=== PATIENT | male | born 1955 | race Caucasian/White ===

== ENCOUNTER 2021-11-25 09:52 | Outpatient (CLI) | payer MEDICARE, OTHER | END 2021-11-25 09:53 | disposition home or self-care (01) | LOC: CSHCT 09:52 | PROVIDERS: ATTEND Student in an Organized Health Care Education/Training Program | DX: J01.91 Acute recurrent sinusitis, unspecified (principal); J32.8 Other chronic sinusitis ==

== ENCOUNTER 2023-06-01 13:16 | Outpatient (CLI) | payer MEDICARE, OTHER | END 2023-06-01 13:17 | disposition home or self-care (01) | LOC: CSHMRI 13:16 | PROVIDERS: ATTEND Internal Medicine | DX: M51.36 Other intervertebral disc degeneration, lumbar region (principal); M43.16 Spondylolisthesis, lumbar region | CPT/HCPCS: 72148 ==

== ENCOUNTER 2024-03-11 16:01 | Outpatient (CLI) | payer MEDICARE, OTHER ==
[2024-03-11 16:38] LABS: #Basophils 0.02 10x3/uL (0.0-0.2); #Eosinphils 0.19 10x3/uL (0.0-0.5); #Monocytes 0.72 10x3/uL (0.0-1.1); #Neutrophils 3.56 10x3/uL (1.5-8.4); %Basophils 0.3 % (0.0-2.0); %Eosinophils 2.9 % (0.0-6.0); %Lymphocytes 31.3 % (18.0-47.0); %Neutrophils 54.3 % (40.0-75.0); Hematocrit 36.9 % (38.8-50.0); Hemoglobin 12.4 g/dL (13.5-17.5); Mean Corpuscular HGB CONC 33.6 g/dL (32.0-36.0); Mean Corpuscular Hemoglobin 28.6 pg (27.0-33.0); Mean Platelet Volume 10.9 fL (7.4-10.4); Platelet Count 243 10x3/uL (150-450); RBC Distribution Width 14.2 % (11.5-14.5); Red Blood Cell (RBC) Count 4.34 10x6/uL (4.32-5.72); White Blood Cell (WBC) Count 6.6 10x3/uL (3.5-10.5)
[2024-03-11 16:57] LABS: Anion Gap 13 mmol/L (10-20); BUN (Urea Nitrogen) 15 mg/dL (8.4-25.7); Calc. Creatinine Clearance 0 mL/min (70-130); Calcium 8.8 mg/dL (7.8-10.44); Carbon Dioxide 22 mmol/L (23-31); Chloride 105 mmol/L (98-107); Estimated GFR 63; Glucose 132 mg/dL (83-110); Potassium 3.8 mmol/L (3.5-5.1); Sodium 136 mmol/L (136-145)
== END 2024-03-11 16:02 | disposition home or self-care (01) ==
LOC: CSHLAB 16:01
PROVIDERS: ATTEND Surgery
DX: Z01.818 Encounter for other preprocedural examination (principal); K40.20 Bilateral inguinal hernia, without obstruction or gangrene, not specified as recurrent
CPT/HCPCS: 80048; 85025; 93005; 93010

== ENCOUNTER 2024-03-15 05:40 | Day surgery (SDC) | payer MEDICARE, OTHER ==
[2024-03-11 16:10] VITALS: BMI 29.0
[2024-03-15] MEDS ORDERED: Bupivacaine/Epinephrine 0.25% 30 ML VIAL ONE (06:26)
[2024-03-15] MEDS ORDERED: fentaNYL 50 mcg/mL 1 mL Vial ONE ×2 (07:09→10:03)
[2024-03-15] MEDS ORDERED: PROPOFOL 0 ML ONE (07:09)
[2024-03-15] MEDS ORDERED: CEFAZOLIN 2 GM VIAL ONE (07:19)
[2024-03-15] MEDS ORDERED: LevoFLOXacin D5W 500 mg (100 mL) BAG ONE (07:23)
[2024-03-15] MEDS ORDERED: ePHEDrine Sulfate 50 MG/10 ML VIAL ONE (07:54)
[2024-03-15] MEDS ORDERED: Rocuronium Bromide 10 MG/ML (10ML VIAL) ONE (07:58)
[2024-03-15] MEDS ORDERED: MINERAL OIL/WHITE PETROLATUM 3.5 GM TUBE ONE (07:58)
[2024-03-15] MEDS ORDERED: Lidocaine 1% PF 5 ML VIAL ONE (07:58)
[2024-03-15] MEDS ORDERED: PROPOFOL 20 ML ONE (08:28)
[2024-03-15] MEDS ORDERED: SUGAMMADEX SODIUM 200 MG/2 ML VIAL ONE (09:22)
[2024-03-15] MEDS ORDERED: Ondansetron PF 4 MG/2 ML Vial ONE (09:22)
[2024-03-15] MEDS ORDERED: Dexamethasone 4 mg/ml Vial ONE (09:22)
[2024-03-15] MEDS ORDERED: HYDROcodone/Acetaminophen 5/325 mg Tablet ONE (10:42)
== END 2024-03-15 11:00 | disposition home or self-care (01) ==
LOC: CSHSDC 05:40
PROVIDERS: ATTEND Surgery
PROC: 0YUA4JZ Supplement Bilateral Inguinal Region with Synthetic Substitute, Percutaneous Endoscopic Approach (ICD-10-PCS; principal; 2024-03-15)
DX: K40.20 Bilateral inguinal hernia, without obstruction or gangrene, not specified as recurrent (principal); I10 Essential (primary) hypertension; I48.0 Paroxysmal atrial fibrillation; K21.9 Gastro-esophageal reflux disease without esophagitis; I48.91 Unspecified atrial fibrillation; I25.10 Atherosclerotic heart disease of native coronary artery without angina pectoris; Z90.89 Acquired absence of other organs; Z98.890 Other specified postprocedural states; Z95.1 Presence of aortocoronary bypass graft; Z88.8 Allergy status to other drugs, medicaments and biological substances; Z88.0 Allergy status to penicillin; Z86.73 Personal history of transient ischemic attack (TIA), and cerebral infarction without residual deficits; Z79.899 Other long term (current) drug therapy
CPT/HCPCS: 49650; 86850; 86870; 86900; 86901; C1781 ×2; J1100; J1956; J2405; J2704; J3010